=== PATIENT | male | born 1970 | race Caucasian/White ===

== ENCOUNTER 2022-06-07 12:45 | Outpatient (RCR) | payer OTHER, BC, SELFPAY | END 2022-06-07 23:59 | disposition home or self-care (01) | LOC: RPT 12:45 | PROVIDERS: ATTENDING PHYSICIAN Family Medicine; PRIMARYCARE PHYSICIAN Family Medicine | DX: S06.0X1D Concussion with loss of consciousness of 30 minutes or less, subsequent encounter (principal); Z73.6 Limitation of activities due to disability; X58.XXXD Exposure to other specified factors, subsequent encounter; S06.0X1S Concussion with loss of consciousness of 30 minutes or less, sequela; V49.60XD Unspecified car occupant injured in collision with unspecified motor vehicles in traffic accident, subsequent encounter | CPT/HCPCS: 97110 ==

== ENCOUNTER 2022-06-16 13:38 | Outpatient (RCR) | payer OTHER, BC, SELFPAY | END 2022-06-16 23:59 | disposition home or self-care (01) | LOC: RPT 13:38 | PROVIDERS: ATTENDING PHYSICIAN Family Medicine; PRIMARYCARE PHYSICIAN Family Medicine | DX: S06.0X1S Concussion with loss of consciousness of 30 minutes or less, sequela (principal); R42 Dizziness and giddiness; Z73.6 Limitation of activities due to disability; S06.0X1D Concussion with loss of consciousness of 30 minutes or less, subsequent encounter; X58.XXXD Exposure to other specified factors, subsequent encounter; V49.60XD Unspecified car occupant injured in collision with unspecified motor vehicles in traffic accident, subsequent encounter | CPT/HCPCS: 97110 ==

== ENCOUNTER → 2022-09-09 07:11 | Outpatient (REF) | payer BC, SELFPAY ==
--- NOTE | 2022-09-09 09:14 | EEG.RPT ---
Electroencephalogram Report
Recording
Date of EE09/09/22
Type of EEG: Routine
Length of EEG recordin m
Done with Video Recording: Yes
Patient Status: Outpatient
Recording Conditions: Awake and Drowsy
Hyperventilation Performed: No
Photic Stimulation Performed: Yes
Report
GREATER THAN 1 HOUR EEG REPORT
GREATER THAN 1 HOUR EEG INTERPRETATION:
Unremarkable EEG for age
CLINICAL CORRELATION:
A normal EEG does not rule out a diagnosis of epilepsy. Of note was the low amplitude of the waves.
If clinical suspicion for seizure persists, a prolonged recording may be warranted.
Clinical correlation is advised.
METHODS:
A 21 channel digitized electroencephalogram (EEG) was performed in the [facility]. The 10/20 international system of electrode placement was used with ECG and lateral/vertical eye movements recorded.
ELECTROENCEPHALOGRAPHER IMPRESSION(S):
Quality of study
Fair due to ECG artifact
Background
Unremarkable, well maintained, very low amplitude alpha-frequency and unremarkable anterior-posterior voltage gradient
With eye opening the background activity changed to a low voltage mixture of frequencies.
Sleep
Drowsiness present
Hyperventilation
Not performed
Photic Stimulation
Activated the record at some intermediate flash frequencies
ECG
Normal sinus rhythm
== END ==
LOC: RCS 07:11
PROVIDERS: ATTENDING PHYSICIAN Psychiatry & Neurology Neurology; FAMILY PHYSICIAN Family Medicine
DX: R42 Dizziness and giddiness (principal); F07.81 Postconcussional syndrome
CPT/HCPCS: 95813

== ENCOUNTER 2023-03-10 13:26 | Outpatient (RCR) | payer BC, SELFPAY | END 2023-03-15 23:59 | disposition home or self-care (01) | LOC: ROT 13:26 | PROVIDERS: ATTENDING PHYSICIAN Nurse Practitioner Adult Health; FAMILY PHYSICIAN Family Medicine | DX: R41.841 Cognitive communication deficit (principal); F07.81 Postconcussional syndrome; Z73.6 Limitation of activities due to disability; R47.89 Other speech disturbances | CPT/HCPCS: 92507; 92523; 97167; 97530; 97535 ==

== ENCOUNTER 2023-04-12 06:56 | Outpatient (RCR) | payer BC, SELFPAY | END 2023-04-12 23:59 | disposition home or self-care (01) | LOC: ROT 06:56 | PROVIDERS: ATTENDING PHYSICIAN Nurse Practitioner Adult Health; FAMILY PHYSICIAN Family Medicine | DX: R41.841 Cognitive communication deficit (principal); F07.81 Postconcussional syndrome; R47.89 Other speech disturbances; Z73.6 Limitation of activities due to disability | CPT/HCPCS: 92507; 97530; 97535 ==

== ENCOUNTER 2023-04-19 08:32 | Outpatient (RCR) | payer BC, SELFPAY | END 2023-04-20 07:36 | disposition home or self-care (01) | LOC: ROT 08:32 | PROVIDERS: ATTENDING PHYSICIAN Nurse Practitioner Adult Health; FAMILY PHYSICIAN Family Medicine | DX: R41.841 Cognitive communication deficit (principal); F07.81 Postconcussional syndrome; R47.89 Other speech disturbances | CPT/HCPCS: 92507; 97530 ==

== ENCOUNTER → 2023-04-21 08:45 | Outpatient (REF) | payer BC, SELFPAY | LOC: REG 08:45 | PROVIDERS: ATTENDING PHYSICIAN Family Medicine | DX: R07.81 Pleurodynia (principal); M62.838 Other muscle spasm; M25.561 Pain in right knee | CPT/HCPCS: 36415; 71101; 73564 ==

== ENCOUNTER 2024-11-29 09:58 | Emergency (ER) | payer BC, SELFPAY ==
[2024-11-29 10:06] VITALS: BP 181/103
--- NOTE | 2024-11-29 10:56 | ED.GENMED ---
History of Present Illness
General
Chief Complaint: Musculo-Skeletal Complaint
Time Seen by Provider: 11/29/24 10:55
History of Present Illness
History of Present Illness:
FOCUSED PAST MEDICAL HISTORY
- High blood pressure, diabetes, had right knee surgery for meniscal tear in the past
REVIEW OF OLD RECORDS
- In 2020, the patient was here with acute hypoxic respiratory failure due to COVID requiring mid flow oxygen
Note:
CHIEF COMPLAINT(S)
Right knee pain, grinding sensation and inability to bear weight.
HISTORY OF PRESENT ILLNESS
The patient is a 54-year-old male presenting with right knee pain that began yesterday. He describes a grinding sensation within the knee joint experienced upon entering his car. The patient reports the pain as diffuse, primarily concentrated in the
calf and extending to the knee, and states that the pain is exacerbated by weight-bearing activities. The right knee is unable to fully bend or accept weight comfortably. The patient has a history of a meniscal injury on the affected knee, with a
possible partial meniscectomy in the past, though details are vague. Radiographs show increased osteoarthritis and a small amount of fluid in the joint space, raising the possibility of a soft tissue issue. The patient expresses significant
discomfort and is seeking pain relief. He already has crutches and a knee brace at home but experiences substantial difficulty with mobility.
PAST MEDICAL AND SURGICAL HISTORY
History of meniscal injury and partial meniscectomy on the right knee.
MEDICATIONS
A prescription for strong pain medication was requested and to be sent to [facility] pharmacy in [place].
REVIEW OF SYSTEMS
- Musculoskeletal: Grinding sensation, inability to bear weight on the right knee, pain extending from the calf to the knee.
PHYSICAL EXAM
General: Alert, appears uncomfortable with any attempted range of motion at the right knee, markedly elevated BMI
Skin: Warm, dry.
Head: Normocephalic, atraumatic.
Neck: Supple, trachea midline.
Eye Ears, nose, mouth, and throat: Oral mucosa moist.
Cardiovascular: Normal peripheral perfusion, no edema.
Respiratory: Respirations are non-labored.
Gastrointestinal: Abdomen non-distended.
Back: Normal range of motion, normal alignment.
Musculoskeletal: Limited range of motion in the right knee. Diffuse swelling, limited exam due to body habitus.
Neurological: Alert and oriented to person, place, time, and situation, no focal neurological deficit observed.
Psychiatric: Cooperative, appropriate mood & affect.
PLAN
1. Prescribe strong analgesics to manage knee pain until orthopedic follow-up.
2. Suggest use of crutches and knee brace for support and to aid mobility.
3. Encourage follow-up with an orthopedic doctor for further evaluation and possible MRI to assess for meniscal damage.
DIFFERENTIAL DIAGNOSIS
The Differential Diagnosis includes, in no particular order and is not limited to:
1. Meniscal tear
2. Osteoarthritis exacerbation
3. Ligamentous injury
4. Synovitis
5. Popliteal (Bakers) cyst
6. Tendinitis or bursitis
7. Cartilage injury
8. Patellar tracking disorder
9. Soft tissue injury
10. Deep vein thrombosis (DVT)
RADIOLOGY
- X-ray shows small joint effusion and worsening osteoarthritis
UPDATE
-SUMMARY OF ENCOUNTER
The patient, a 54-year-old male, presented to the emergency department with right knee pain, a grinding sensation, and inability to bear weight, which began yesterday. A history of meniscal injury and possible partial meniscectomy in the past was
noted. X-rays indicated worsening osteoarthritis but did not suggest deep vein thrombosis (DVT) suspicious signs. Symptom management in the emergency department included the administration of analgesics to alleviate his discomfort, as he appeared
somewhat uncomfortable with any attempted movement. The patient already had crutches and was advised to use them along with a knee immobilizer for support, although his large body habitus might limit its usability.
ASSESSMENT
The patients symptoms are consistent with an exacerbation of knee osteoarthritis and possible worsening of previous meniscal damage. A knee immobilizer and analgesic administration were considered appropriate for immediate symptomatic relief.
EMERGENCY TREATMENTS ADMINISTERED
Narcotic analgesics were administered to manage the acute pain experienced by the patient.
PLAN
1. Prescribe strong analgesics for pain relief to manage knee discomfort until further orthopedic evaluation.
2. Use of crutches and knee brace recommended for support to aid in mobility.
3. Follow-up with an beef specialist to evaluate the need for further imaging and assessment, such as MRI, to determine potential meniscal damage.
INDEPENDENT REVIEW OF LABS AND INTERPRETATION OF TESTS
- My independent x-ray interpretation indicates increased osteoarthritis in the right knee, with no evidence of DVT.
MEDICATION RECONCILIATION
- Narcotic analgesics were administered for acute pain management in the emergency department.
- A prescription for further pain management was suggested, with instructions to have it filled at the patients preferred pharmacy.
MEDICAL DECISION MAKING
- Complexity of Data Reviewed: Chronic conditions affecting care: History of meniscal injury and partial meniscectomy. Differential diagnosis includes meniscal tear, osteoarthritis exacerbation, ligamentous injury, synovitis, popliteal (Bakers)
cyst, tendinitis or bursitis, cartilage injury, patellar tracking disorder, soft tissue injury, possible DVT.
- Data:
Category 1
- The patients recent x-ray was reviewed and interpreted independently.
Category 3
- Discussion of management included advising the patient on using a knee immobilizer and crutches despite his large body habitus.
-Risk:
- Prescription drug management was initiated with the administration of narcotic analgesics for pain control.
- Consideration of Admission/Observation: Escalation of care, including admission/observation, was considered given the complexity and risk of the patients presenting complaint, exam findings, and his underlying conditions. However, the patient was
deemed safe for outpatient management with close follow-up. Reasoning: Work-up suggests no acute life-threatening processes, the patients symptoms managed with analgesics, and patient reliable for follow-up.
DIAGNOSIS
- Osteoarthritis of the right knee (ICD-10: M17.11)
- History of partial meniscectomy (ICD-10: Z98.83)
Past History
Past History
ED Past Medical History: None
ED Past Surgical History: Orthopedic
Social History
Tobacco: Non-smoker
Alcohol: None
Drug: None
Personal: Single
Living: alone
Employment: Employed
Phy Exam
Physical Exam
Physical Exam:
See HPI
Course
Orders/Labs/Results
Orders:
Orders
11/29/24 10:10
CR Knee- Right 4 Or More View* Urgent
Comment:
Reason For Exam: Injury
11/29/24 11:12
Knee Immobilizer Right-Treatme ONCE
Vital Signs
Initial and Last Documented VS:
Initial Vital Signs
Temp Pulse Resp BP Pulse Ox
36.9 C 90 16 181/103 96
11/29/24 10:06 11/29/24 10:06 11/29/24 10:06 11/29/24 10:06 11/29/24 10:06
Last Documented Vital Signs
Temp Pulse Resp BP Pulse Ox
36.9 C 90 16 181/103 96
11/29/24 10:06 11/29/24 10:06 11/29/24 10:06 11/29/24 10:06 11/29/24 10:57
*Pulse Oximetry
SaO2: 96
Oxygen Mode of Delivery: Room air
Patient hypoxic: no
*Critical Care Note
Total Time (30-74mins, 75-104mins- exclusive of procedures): Not Applicable
ED Attending Note
-
Portions of this chart may have been created with voice recognition software.� Occasional wrong word or��sound alike� substitutions may have occurred due to the inherent limitations of voice recognition software.
Discharge Plan
Departure
Patient Disposition: Home (Routine Discharge)
Date of Disposition: 11/29/24
Time of Disposition: 11:14
Patient with high blood pressure during this ER visit?: Yes
Discharge Problem:
Acute knee pain
Instructions: Knee Immobilizer (DC), Knee Pain (DC), BLOOD PRESSURE
Prescriptions:
New
oxycodone-acetaminophen [Percocet] 5-325 mg tablet
1 - 2 tab PO Q8H PRN (Reason: Pain) Qty: 14 0RF
No Action
amlodipine 5 MG tablet
5 mg PO DAILY Qty: 30 0RF
famotidine 20 MG tablet
20 mg PO BID Qty: 18 0RF
ascorbic acid (vitamin C) [Vitamin C] 500 MG tablet
1,000 mg PO BID Qty: 36 0RF
zinc sulfate 220 MG capsule
220 mg PO DAILY Qty: 9 0RF
melatonin 5 MG tablet
5 mg PO HS Qty: 9 0RF
guaifenesin [Mucus Relief ER] 600 MG tablet extended release 12hr
600 mg PO Q12 0RF
cholecalciferol (vitamin D3) 2,000 UNITS tablet
2,000 units PO DAILY Qty: 10 0RF
dexamethasone [Decadron] 6 MG tablet
6 mg PO DAILY Qty: 5 0RF
aspirin 81 MG tablet,chewable
81 mg PO DAILY Qty: 30 0RF
Referrals:
Fidel Pearson MD [Active, Orthopedics]
UNKNOWN - PT DOES,NOT KNOW [Family Provider]
Activity Restrictions/Additional Instructions:
Use your crutches as needed. I have given the contact information for a local orthopedist, Dr. Pearson. If you take narcotic, I recommend taking some like MiraLAX to prevent constipation.
Discharge Date and Time
Print Language: INDONESIAN
== END 2024-11-29 11:38 | disposition home or self-care (01) ==
LOC: EMR 09:58
PROVIDERS: EMERGENCY PHYSICIAN Emergency Medicine
DX: M25.561 Pain in right knee (principal); X58.XXXA Exposure to other specified factors, initial encounter; E11.9 Type 2 diabetes mellitus without complications; Z74.09 Other reduced mobility; Z86.16 Personal history of COVID-19; M17.11 Unilateral primary osteoarthritis, right knee
CPT/HCPCS: 99283; 29505; 73564